=== PATIENT | male | born 1990 | race Caucasian/White ===

== ENCOUNTER 2020-08-25 21:24 | Emergency (ER) | payer MEDICAID ==
[~2020-08-25] VITALS: Ht 175.3 cm; Wt 80.7 kg
[2020-08-25 21:32] VITALS: BP_SYST 132
== END 2020-08-25 23:38 | disposition left against medical advice (07) ==
LOC: SED 21:24
DX: R10.9 Unspecified abdominal pain (principal); Z53.21 Procedure and treatment not carried out due to patient leaving prior to being seen by health care provider